=== PATIENT | male | born 1985 | race Two or more races ===

== ENCOUNTER 2017-05-09 11:50 | Emergency (ER) | payer SELFPAY ==
[~2017-05-09] VITALS: Ht 177.8 cm; Wt 139.1 kg
[2017-05-09] MEDS ORDERED: HYDROGEN PEROXIDE 118 ML SOLUTION TP ONE (16:45)
[2017-05-09] MEDS ORDERED: CARBAMIDE PEROXIDE 6.5% 15 ML OTIC SOLUTION AU ONE (16:45)
[2017-05-09 17:40] VITALS: BP 135/74
== END 2017-05-09 17:46 | disposition home or self-care (01) ==
LOC: EMS 11:51 → EDBD 11:51 → EMS 17:46
DX: H61.23 Impacted cerumen, bilateral (principal); R03.0 Elevated blood-pressure reading, without diagnosis of hypertension
CPT/HCPCS: 69209; 99283